=== PATIENT | female | born 1955 | race American Indian/Alaskan Native ===

== ENCOUNTER 2018-03-17 12:28 | Outpatient (CLI) | payer MEDICAID ==
--- NOTE | 2018-03-20 09:33 | Magnetic Resonance Report ---
BILATERAL BREAST MRI WITHOUT AND WITH CONTRAST: 03/17/18 12:28:00 CLINICAL: Recent abnormal mammograms. She has a family history of breast cancer in 2 sisters COMPARISON:None.. TECHNIQUE: Axial 1.0-mm T1 without, axial high resolution 2.0-mm T2 and axial 1.0-mm dynamic Vibrant high-resolution postcontrast T1 fat saturation sequences on a 1.5 Lynn magnet. The examination was performed with an 8 channel dedicated Sentinelle breast coil. Post processing with CAD and subtraction was performed on an [employer] workstation. 18.0 cc of Multihance was injected without incident for the contrast portion of the exam. Consent was obtained prior to the administration of the contrast. FINDINGS: Right: Moderate background parenchymal enhancement. Lesion 1 is an irregular enhancing mass at 5 o'clock 5.7 cm from the nipple measuring 8.3 x 7.2 x 6.2 mm. It demonstrates heterogeneous enhancement with mixed kinetics, 215% peak enhancement and 15% type III washout. The mass is isointense with normal breast parenchyma on T1 and T2 but is better appreciated on the T1 sequence. Lesion 2 is a benign intramammary lymph node in the lower outer quadrant 12.3 cm from the nipple. It measures 9.8 x 9.6 x 5.8 mm and central fat is identified on T2. It demonstrates heterogeneous enhancement with mixed kinetics, 343% peak enhancement, 54% type I persistent, 43% type II plateau and 3% type III washout. No other mass or suspicious enhancement. No suspicious right axillary or right internal mammary lymph nodes. Left: Moderate background parenchymal enhancement and an asymmetric pattern of enhancement in the left breast when compared to the right. No left breast mass. However, suspicious regional clumped non-Mass enhancement of the inner left breast measures 8.2 cm in length by 3.1 cm transverse dimension by 4.2 cm craniocaudal dimension. No suspicious left axillary or left internal mammary lymph nodes. IMPRESSION: 1. A suspicious 8.3 mm right breast mass at 5 o'clock 5.7 cm from the nipple. 2. A right benign intramammary lymph node in the lower outer quadrant. 3. Suspicious regional non-mass enhancement of the left breast involving a volume of 8.2 x 3.1 x 4.2 cm. RECOMMENDATION: Bilateral MRI guided needle biopsy. 4 -- Suspicious
== END 2018-03-17 12:29 | disposition home or self-care (01) ==
LOC: SPVIMAG 12:28
PROVIDERS: ATTEND Surgery
DX: R92.8 Other abnormal and inconclusive findings on diagnostic imaging of breast (principal); Z80.3 Family history of malignant neoplasm of breast
CPT/HCPCS: A9577; C8908; 77059

== ENCOUNTER 2018-04-01 10:15 | Outpatient (CLI) | payer MEDICAID ==
--- NOTE | 2018-04-02 09:05 | Magnetic Resonance Report ---
MRI GUIDED VACUUM ASSISTED CORE BIOPSY RIGHT BREAST: 04/01/18 10:15:00 CLINICAL: A suspicious 8mm right breast mass at 5 o'clock 6 cm from the nipple. FINDINGS: Consent for the procedure was obtained. A Vibrant dynamic postcontrast series was performed on a 1.5 Lynn magnet using an 8 channel Sentinelle dedicated breast coil. The lesion was localized and targeted using [employer] Sentinelle biopsy software. The skin was anesthetized with 1% lidocaine and a small dermatotomy was made. 2% lidocaine was administered for deeper anesthesia. 9-G biopsy was performed with an Fiberspar vacuum assisted device. Imaging demonstrated satisfactory positioning of the probe and samples were obtained. A clip was placed after confirmation of adequate sampling. The probe was removed and hemostasis was achieved with pressure to the site. A sterile dressing was applied. The patient tolerated the procedure well and there were no apparent complications. A two view mammogram demonstrated concordant clip placement. The patient left the department in good condition with instructions for would care and follow-up. IMPRESSION: Uncomplicated MRI biopsy with clip placement right breast.
--- NOTE | 2018-04-02 09:07 | Mammography Report ---
RIGHT DIGITAL DIAGNOSTIC MAMMOGRAM: 04/01/18 10:15:00 CLINICAL: For clip placement immediately status post MRI guided needle biopsy. COMPARISON:MRI breast 03/17/18 FINDINGS: A biopsy clip is now identified at 6 o'clock 7 cm from the nipple. The biopsied lesion was at 5 o'clock 6 cm from the nipple. This slight discordance (with the clip slightly more lateral) may be related to a moderate-sized hematoma at the biopsy site. IMPRESSION: Slight discordance clip placement status post MRI biopsy. BI-RADS CATEGORY: 4--Suspicious Pathology pending.
== END 2018-04-01 10:16 | disposition home or self-care (01) ==
LOC: SPVIMAG 10:15
PROVIDERS: ATTEND Surgery
DX: D24.1 Benign neoplasm of right breast (principal); R92.0 Mammographic microcalcification found on diagnostic imaging of breast; Z80.3 Family history of malignant neoplasm of breast
CPT/HCPCS: 19085; 77065; A4648; A9577; 88305

== ENCOUNTER 2018-04-20 08:41 | Outpatient (CLI) | payer MEDICAID ==
--- NOTE | 2018-04-20 14:28 | Magnetic Resonance Report ---
MRI GUIDED VACUUM ASSISTED CORE BIOPSY BREAST: 04/20/18 08:41:00 CLINICAL: Non-mass enhancement FINDINGS: Consent for the procedure was obtained. A Vibrant dynamic postcontrast series was performed on a 1.5 Lynn magnet using an 8 channel Sentinelle dedicated breast coil. 18.0 cc of Multihance was injected intravenously without incident for the contrast portion of the exam. Consent was obtained prior to the administration of contrast. A lesion of the inner breast was localized and targeted using [employer] Sentinelle biopsy software. The skin was anesthetized with 1% lidocaine and a small dermatotomy was made. 2% lidocaine was administered for deeper anesthesia. 9-G biopsy was performed with an Tr[employer] vacuum assisted device. Imaging demonstrated satisfactory positioning of the probe and samples were obtained. A clip was placed after confirmation of adequate sampling. The probe was removed and hemostasis was achieved with pressure to the site. A sterile dressing was applied. The patient tolerated the procedure well and there were no apparent complications. A two view mammogram demonstrated concordant clip placement. The patient left the department in good condition and was given instructions for wound care and follow-up. IMPRESSION: Uncomplicated MRI biopsy with clip placement left breast.
--- NOTE | 2018-04-20 14:31 | Mammography Report ---
LEFT DIGITAL DIAGNOSTIC MAMMOGRAM: 04/20/18 08:41:00 CLINICAL: For clip placement immediately status post ultrasound biopsy. COMPARISON:MRI bilateral 03/17/18 FINDINGS: A biopsy clip is now identified slightly medial to the nipple and correlates with the sampled lesion. IMPRESSION: Concordant clip placement status post MRI biopsy. BI-RADS CATEGORY: 4A -- Mildly Suspicious Pathology pending.
== END 2018-04-20 08:42 | disposition home or self-care (01) ==
LOC: SPVIMAG 08:41
PROVIDERS: ATTEND Surgery
DX: R92.0 Mammographic microcalcification found on diagnostic imaging of breast (principal); Z80.3 Family history of malignant neoplasm of breast
CPT/HCPCS: 19085; 77065; A9577

== ENCOUNTER 2018-05-27 06:40 | Day surgery (SDC) | payer MEDICAID ==
--- NOTE | 2018-05-27 07:40 | Anesthesia Day of Surgery ---
Anesthesia Day of Surgery - Day of Surgery Patient Examined: Yes Patient H&P Reviewed: Yes Patient is NPO: Yes
--- NOTE | 2018-05-27 07:41 | Anesthesia Consultation ---
Anesthesia Consult and Med Hx Date of service: 05/27/18 - Airway Anesthetic Teeth Evaluation: Good ROM Head & Neck: Adequate Mental/Hyoid Distance: Adequate Mallampati Class: Class I Intubation Access Assessment: Good - Pulmonary Exam CTA: Yes - Cardiac Exam Cardiac Exam: RRR - Pre-Operative Health Status ASA Pre-Surgery Classification: ASA3 Proposed Anesthetic Plan: General (HTN, DM, GERD controlled) - Cardiovascular System Hx Hypertension: Yes (1Y) - Central Nervous System Hx Psychiatric Problems: No - Hematic Hx Sickle Cell Disease: Yes (TRAIT) - Other Systems Hx Alcohol Use: No Hx Substance Use: No Hx Cancer: No
[2018-05-27] MEDS ORDERED: XYLOCAINE 1% 20 mL ONE (07:51)
[2018-05-27] MEDS ORDERED: TORADOL IV PRN (08:00)
[2018-05-27] MEDS ORDERED: VERSED IV NR (08:00)
[2018-05-27] MEDS ORDERED: ZOFRAN IV PRN (08:00)
[2018-05-27] MEDS ORDERED: LACTATED RINGERS 1,000 ML IV SCH ×2 (08:00)
[2018-05-27] MEDS ORDERED: DEMEROL IV PRN (08:00)
[2018-05-27] MEDS ORDERED: DILAUDID IV PRN (08:00)
[2018-05-27] MEDS ORDERED: XYLOCAINE 1% 20 mL INFILTRATI NR (08:07)
[2018-05-27] MEDS ORDERED: MARCAINE 0.25% INFILTRATI ONE ×2 (09:40→10:38)
[2018-05-27] MEDS ORDERED: XYLOCAINE MPF 2% ONE (09:43)
[2018-05-27] MEDS ORDERED: DILAUDID ONE (09:43)
[2018-05-27] MEDS ORDERED: DIPRIVAN 10 MG/ML IV ONE (09:43)
--- NOTE | 2018-05-27 09:59 | Short Stay Summary ---
Short Stay Documentation Date of service: 05/27/18 - History H&P: obtained from office - Allergies and Medications Current Medications: Allergies No Known Allergies Allergy (Verified 05/25/18 11:51) Home Medications Medication Instructions Recorded Confirmed Last Taken Type Amlodipine Besylate [Norvasc] 5 mg PO DAILY 05/25/18 05/27/18 05/26/18 17:00 History Aspirin [Adult Aspirin] 81 mg PO DAILY 05/25/18 05/25/18 05/19/18 History Ibuprofen [Motrin] 800 mg PO Q8HR PRN 05/25/18 05/25/18 05/23/18 History Omeprazole 40 mg PO DAILY 05/25/18 05/27/18 05/26/18 09:00 History Simvastatin [Zocor TAB] 20 mg PO QHS 05/25/18 05/27/18 05/26/18 21:00 History metFORMIN [Glucophage] 500 mg PO QDAY 05/25/18 05/27/18 05/26/18 09:00 History Active Medications Cefazolin Sodium (Ancef/Sterile Water 2 Gm/20 Ml) 2 gm IV PREOP NR Stop: 05/27/18 19:00 Hydromorphone HCl (Dilaudid) 0.5 mg IV Q10MIN PRN PRN Reason: Pain , Severe (7-10) Stop: 05/27/18 15:00 Lactated Ringer's (Lactated Ringers) 1,000 mls @ 100 mls/hr IV DIRECT IDANIA Last Admin: 05/27/18 09:13 Dose: 100 mls/hr Ketorolac Tromethamine (Toradol) 30 mg IV ONCE PRN PRN Reason: Pain, Moderate (4-6) Stop: 05/27/18 18:00 Lidocaine (Xylocaine 1% 20 Ml) 20 ml INFILTRATI ONCE NR Stop: 05/27/18 11:00 Meperidine HCl (Demerol) 25 mg IV ONCE PRN PRN Reason: Shivering Stop: 05/27/18 21:00 Midazolam HCl (Versed) 2 mg IV PREOP NR Stop: 05/27/18 23:59 Last Admin: 05/27/18 09:14 Dose: 2 mg Ondansetron HCl (Zofran) 4 mg IV ONCE PRN PRN Reason: Nausea And Vomiting Stop: 05/27/18 18:00 - Brief post op/procedure progress note Date of procedure: 05/27/18 Pre-op diagnosis: Bilateral breast papillomas Post-op diagnosis: same Procedure: Bilateral breast needle localization excisional biopsy Anesthesia: GETA Findings: Bilateral wires and clips present within radiograph specimen Surgeon: SHAILESH DESAI Estimated blood loss: minimal Pathology: list (bilateral breast excisional biopsy) Specimen disposition: to lab Condition: stable - Disposition Condition at discharge: Good Disposition: DC-01 TO HOME OR SELFCARE Short Stay Discharge Plan Activity: other (no heavy lifting) Diet: diabetic Wound: other (keep incisions clean and dry; may shower in 30 hours; no baths, pools or lakes; do not rub or scrub incision; wear breast binder) Follow up with: DAX ESCOBAR MD [Primary Care Provider] - 7 Days SHAILESH DESAI MD [Staff Physician] - 7 Days
[2018-05-27] MEDS ORDERED: ANCEF/STERILE WATER 2 GM/20 ML IV NR (10:00)
[2018-05-27] MEDS ORDERED: WATER FOR IRRIG STERILE IR ONE (10:38)
[2018-05-27] MEDS ORDERED: XYLOCAINE 1% 20 mL INFILTRATI ONE (10:39)
--- NOTE | 2018-05-27 11:23 | Mammography Report ---
NEEDLE LOCALIZATION AND HOOKWIRE PLACEMENT LEFT BREAST:05/27/18 CLINICAL: Papilloma by MRI guided needle biopsy FINDINGS: Using mammographic guidance, 1% lidocaine local anesthesia and sterile technique, a 10.0-cm Glass needle/hookwire was placed from a lateral approach to localize a biopsy clip. 2 views confirmed satisfactory placement. The hookwire was deployed and the needle was removed. The patient tolerated the procedure well and there were no apparent complications. IMPRESSION: Uncomplicated hookwire placement left breast.
--- NOTE | 2018-05-27 11:24 | Mammography Report ---
SPECIMEN RADIOGRAPH LEFT BREAST: 05/27/18 06:40:00 CLINICAL: Surgical excision of a papilloma. FINDINGS: The targeted lesion with a localizer clip and hookwire are identified within the specimen. IMPRESSION: Excision of the targeted lesion.
[2018-05-27] MEDS ORDERED: DECADRON ONE (11:48)
[2018-05-27] MEDS ORDERED: NACL 0.9% 1000 ML 1,000 ML ONE (11:49)
[2018-05-27] MEDS ORDERED: SUBLIMAZE ONE (11:53)
--- NOTE | 2018-05-27 12:04 | Mammography Report ---
SPECIMEN RADIOGRAPH LEFT BREAST: RIGHT CLINICAL: Surgical excision of a papilloma. FINDINGS: The targeted lesion with a localizer clip and a hookwire hookwire are identified within the specimen. IMPRESSION: Excision of the targeted lesion.
--- NOTE | 2018-05-27 12:32 | Operative Report ---
Operative Report Operative Report: Date of Service: May 27, 2018 Preoperative diagnosis: Right breast papilloma of the lower inner quadrant and left breast papilloma of the central breast Postoperative diagnosis: Same Procedure: Left needle localization excisional biopsy and right breast needle localization excisional biopsy Surgeon: Lola Liu MD Anesthesia: General Findings: Left wire and clip present within radiograph specimen; Right wire and clip present within radiograph specimen Complications: None EBL: Minimal Disposition: PACU in good condition Procedure in detail: This is a 62-year-old lady high risk for breast cancer given family history, recent screening breast MRI with bilateral breast suspicious findings and biopsy performed with findings of bilateral breast papillomas. Recommendations are to proceed with bilateral breast excisional biopsies given breast cancer risk association. Patient wished to proceed with the above procedure. Procedure in detail: The patient was taken to radiology for wire placement for localization of bilateral breast area of concern. Patient was then taken to the operating room. Gen. anesthesia was administered. Bilateral breast was prepped and draped in the normal sterile operative fashion. Both wires were identified. Timeout was performed. First began with the left breast, a lower outer quadrant breast incision was made with a 15 blade knife and dissection taken down to subcutaneous tissues. First began raising of the lateral flap with removal of the wire from the skin, followed by raising of the medial flap, superior flap and inferior flap. The breast area of concern was appropriately removed posteriorly immediately with the aid of the bovie cautery. The wire was not encountered. Specimen was marked and then sent to pathology and radiology; radiograph specimen with wire and clip present. Breast cavity was irrigated and hemostasis was obtained. The breast cavity was anesthetized with 1% lidocaine mixed with quarter percent Marcaine. The subcutaneous tissues were approximated and closed using interrupted 3-0 Vicryl followed by a running 4-0 Monocryl and skin affix. Attention was then taken towards the right breast. A lower inner breast incision was made with a 15 blade knife and dissection taken down to subcutaneous tissues. First began raising of the lateral flap with removal of the wire from the skin, followed by raising of the medial flap, superior flap and inferior flap. The breast area of concern was appropriately removed posteriorly immediately with the aid of the bovie cautery. The wire was not encountered. Specimen was marked and then sent to pathology and radiology; radiograph specimen with wire and clip present. Breast cavity was irrigated and hemostasis was obtained. The breast cavity was anesthetized with 1% lidocaine mixed with quarter percent Marcaine. The subcutaneous tissues were approximated and closed using interrupted 3-0 Vicryl followed by a running 4-0 Monocryl and skin affix. The patient tolerated surgery very well and she was awaken from anesthesia without any complication and transported to PACU in good condition.
--- NOTE | 2018-05-27 12:47 | Mammography Report ---
NEEDLE LOCALIZATION AND HOOKWIRE PLACEMENT RIGHT BREAST:05/27/18 CLINICAL: Papilloma by MRI guided needle biopsy FINDINGS: Using mammographic guidance, 1% lidocaine local anesthesia and sterile technique, a 7.5-cm Glass needle with a hookwire was placed from a medial approach to localize a biopsy clip. The hookwire was deployed and the needle was removed. Satisfactory placement was confirmed on two orthogonal views. The patient tolerated the procedure well and there were no apparent complications. IMPRESSION: Uncomplicated hookwire placement right breast.
[2018-05-27] MEDS ORDERED: NORCO 5/325 PO SCH (13:48)
[2018-05-27 14:12] VITALS: BP 120/64
--- NOTE | 2018-05-27 16:51 | Post Anesthesia Evaluation ---
- Post Anesthesia Evaluation Patient Participated: Yes Airway Patent: Yes Stable Respiratory Function: Yes Nausea/Vomiting: No Temp > 96.8F: Yes Pain Manageable: Yes Adequeate Hydration: Yes Anesthesia Complications: No
== END 2018-05-27 14:45 | disposition home or self-care (01) ==
LOC: OR 06:40
PROVIDERS: ATTEND Surgery
DX: D24.2 Benign neoplasm of left breast (principal); D24.1 Benign neoplasm of right breast; I10 Essential (primary) hypertension; K21.9 Gastro-esophageal reflux disease without esophagitis; M19.90 Unspecified osteoarthritis, unspecified site; Z79.82 Long term (current) use of aspirin; Z79.899 Other long term (current) drug therapy; Z79.84 Long term (current) use of oral hypoglycemic drugs; Z90.710 Acquired absence of both cervix and uterus; Z98.890 Other specified postprocedural states; Z86.2 Personal history of diseases of the blood and blood-forming organs and certain disorders involving the immune mechanism
CPT/HCPCS: 19125; 19281; 76098; 82962; 88307; J0690; J1100; J1170; J2250; J2405; J2704; J3010; J7030; J7120

== ENCOUNTER 2018-12-15 09:44 | Outpatient (CLI) | payer MEDICAID ==
--- NOTE | 2018-12-15 10:21 | Mammography Report ---
BILATERAL DIGITAL SCREENING MAMMOGRAM with CAD: 12/15/18 09:44:00 CLINICAL: Routine screening.High risk for breast cancer and status post bilateral surgical excision of benign papillomas 05/27/18. COMPARISON:04/01/18 and 04/20/18 FINDINGS: The breasts are heterogeneously dense, which may obscure small masses. Bilateral asymmetries regard additional imaging.No architectural distortion or suspicious calcifications. IMPRESSION: Bilateral asymmetries requiring further workup. BI-RADS CATEGORY: 0 -- Additional Imaging Evaluation Required RECOMMENDATION: Recall for bilateral lateral medial and spot compression views and bilateral breast ultrasound if needed. ACR BI-RADS MAMMOGRAPHIC CODES: 0 = Needs additional imaging evaluation; 1 = Negative; 2 = Benign; 3 = Probably benign; 4 = Suspicious; 5 = Malignant; 6 = Known biopsy-proven malignancy COMMENT: 1. Dense breast tissue, i.e., adenosis, fibrocystic changes, etc., may obscure an underlying neoplasm. 2. Approximately 10% of cancers are not detected with mammography. 3. A negative mammography report should not delay biopsy if a clinically suspicious mass is present. COMMENT: Patient follow-up letters are generated via our [employer] application.
== END 2018-12-15 09:45 | disposition home or self-care (01) ==
LOC: SPVWC 09:44
PROVIDERS: ATTEND Surgery
DX: Z12.31 Encounter for screening mammogram for malignant neoplasm of breast (principal); K21.9 Gastro-esophageal reflux disease without esophagitis; I10 Essential (primary) hypertension; M19.90 Unspecified osteoarthritis, unspecified site; Z90.710 Acquired absence of both cervix and uterus
CPT/HCPCS: 77067

== ENCOUNTER 2018-12-22 10:42 | Outpatient (CLI) | payer MEDICAID ==
--- NOTE | 2018-12-22 11:23 | Mammography Report ---
BILATERAL DIGITAL DIAGNOSTIC MAMMOGRAM : 12/22/18 10:42:00 CLINICAL: Recalled for bilateral asymmetries. COMPARISON:12/15/18 screening FINDINGS: Additional bilateral mammographic views were performed and are negative. IMPRESSION: No mammographic evidence of malignancy. BI-RADS CATEGORY: 2 - - Benign RECOMMENDATION: Routine mammographic screening in one year. ACR BI-RADS MAMMOGRAPHIC CODES: 0 = Needs additional imaging evaluation; 1 = Negative; 2 = Benign; 3 = Probably benign; 4 = Suspicious; 5 = Malignant; 6 = Known biopsy-proven malignancy COMMENT: 1. Dense breast tissue, i.e., adenosis, fibrocystic changes, etc., may obscure an underlying neoplasm. 2. Approximately 10% of cancers are not detected with mammography. 3. A negative mammography report should not delay biopsy if a clinically suspicious mass is present. COMMENT: Patient follow-up letters are generated via our [employer] application.
== END 2018-12-22 10:43 | disposition home or self-care (01) ==
LOC: SPVWC 10:42
PROVIDERS: ATTEND Surgery
DX: R92.8 Other abnormal and inconclusive findings on diagnostic imaging of breast (principal); K21.9 Gastro-esophageal reflux disease without esophagitis; I10 Essential (primary) hypertension; M19.90 Unspecified osteoarthritis, unspecified site
CPT/HCPCS: 77066

== ENCOUNTER 2022-01-08 10:24 | Outpatient (CLI) | payer MEDICARE, OTHER ==
--- NOTE | 2022-01-09 09:12 | Mammography Report ---
DIGITAL SCREENING MAMMOGRAM WITH CAD, 01/08/2022 CLINICAL INFORMATION / INDICATION: Routine screening mammography. SCREENING MAMMO Z12.31 TECHNIQUE: Digital bilateral 2D mammography was obtained in the craniocaudal and mediolateral obliqu e projections. This examination was interpreted with the benefit of Computer-Aided Detection analysis . COMPARISON: 12/15/2018 FINDINGS: Breast Density: The breasts are heterogeneously dense, which may obscure small masses. No dominant mass, suspicious calcifications, or architectural distortion in either breast. Largely unchanged nodular densities in the breasts, commonly fibroglandular or fibrocystic change. Bilateral scars noted. IMPRESSION: No mammographic evidence of malignancy. Follow up recommendation: Routine yearly BI-RADS Category 2: BENIGN. A "normal" or negative report should not discourage follow up or biopsy of a clinically significant f inding. A written summary of these findings will be mailed to the patient. The patient will be entered into a mammography reporting system which will generate a reminder letter for the patient's next appointmen t at the appropriate interval. The [employer] recommends yearly mammograms starting at age 40 and continuing as l symone as a woman is in good health. Breast MRI is recommended for women with an approximate 20-25% or greater lifetime risk of breast cancer, including women with a strong family history of breast or ova nancy cancer or who have been treated for Hodgkin's disease. Signer Name: Christos Dorsey MD Signed: 01/09/2022 9:07 AM Workstation Name: [id number]
== END 2022-01-08 10:25 | disposition home or self-care (01) ==
LOC: SPVWC 10:24
PROVIDERS: ATTEND Surgery
DX: Z12.31 Encounter for screening mammogram for malignant neoplasm of breast (principal)
CPT/HCPCS: 77067